=== PATIENT | male | born 1955 | race Caucasian/White ===

== ENCOUNTER 2020-06-19 11:46 | Outpatient (REF) | payer MEDICARE, BC, SELFPAY ==
[2020-06-19 14:52] LABS: ALT 66 U/L (16-63); AST 32 U/L (15-37); Albumin 4.5 g/dL (3.4-5.0); Alkaline Phosphatase 95 U/L (46-116); Anion Gap 9.8 mmol/L (3-11); BUN 28 mg/dL (7-18); Bilirubin, Total 0.9 mg/dL (0.2-1.0); CO2 25.2 mmol/L (21.0-32.0); CREATININE 1.11 mg/dL (0.70-1.30); Calcium 9.2 mg/dL (8.5-10.1); Calculated LDL 85 mg/dL (<100); Chloride 108 mmol/L (98-107); Cholesterol 150 mg/dL (<200); Glucose 93 mg/dL (74-106); HDL Cholesterol 57 mg/dL (40-60); Potassium 4.8 mmol/L (3.5-5.1); Sodium 143 mmol/L (136-145); Total Protein 7.4 g/dL (6.4-8.2); Triglyceride 40 mg/dL (<150)
== END 2020-06-19 12:06 ==
LOC: LBO 11:46
PROVIDERS: PCP Family Medicine; Visit Provider Family Medicine
DX: E78.5 Hyperlipidemia, unspecified (principal)
CPT/HCPCS: 80053; 80061

== ENCOUNTER 2020-10-20 02:20 | Outpatient (CLI) | payer MEDICARE, BC, SELFPAY ==
[2020-10-21 12:51] LABS: COVID-19 RT-PCR UVMMC Result Negative (Negative)
== END 2020-10-20 02:21 | disposition home or self-care (01) ==
LOC: LBO 02:20
PROVIDERS: PCP Family Medicine; Visit Provider Family Medicine
DX: Z20.822 Contact with and (suspected) exposure to COVID-19 (principal)
CPT/HCPCS: U0003; U0005

== ENCOUNTER 2021-06-17 02:33 | Outpatient (CLI) | payer MEDICARE, BC, SELFPAY ==
[2021-06-17 10:15] LABS: BUN 32 mg/dL (7-18); CREATININE 1.1 mg/dL (0.70-1.30); Calcium 9.4 mg/dL (8.5-10.1); Chloride 106 mmol/L (98-107); Glucose 99 mg/dL (74-106); Potassium 4.9 mmol/L (3.5-5.1); Sodium 141 mmol/L (136-145)
== END 2021-06-17 02:34 | disposition home or self-care (01) ==
LOC: LBO 02:33
PROVIDERS: PCP Family Medicine; Visit Provider Family Medicine
DX: I10 Essential (primary) hypertension (principal)
CPT/HCPCS: 36415; 80048

== ENCOUNTER 2021-10-05 08:59 | Outpatient (CLI) | payer MEDICARE, BC, SELFPAY ==
--- NOTE | 2021-10-05 08:45 | RT.EKG_ITS ---
APPROVED REPORT Exam: Resting ECG Reason for Exam: Pre-op Patient Location: O HR:47 bpm ECG Measurements Heart Rate 47 AXIS WI 203 P 2 QRSd 78 QRS 22 QT 429 T 41 QTc 379 Conclusion Sinus bradycardia...rate< 60 Normal Electrocardiogram
== END 2021-10-05 09:00 | disposition home or self-care (01) ==
LOC: DI.KIM 09:00
PROVIDERS: PCP Family Medicine; Visit Provider Family Medicine
DX: R00.1 Bradycardia, unspecified (principal)
CPT/HCPCS: 93010

== ENCOUNTER → 2022-07-07 09:54 | Outpatient (BNVA) | payer MEDICARE, BC, SELFPAY | PROVIDERS: PCP Family Medicine; Referring Provider Family Medicine; Visit Provider Nurse Practitioner Adult Health | DX: G56.03 Carpal tunnel syndrome, bilateral upper limbs (principal); G56.23 Lesion of ulnar nerve, bilateral upper limbs | CPT/HCPCS: 95885; 95911; 99203 ==

== ENCOUNTER 2023-02-27 14:57 | Outpatient (CLI) | payer MEDICARE, BC, SELFPAY ==
[2023-02-27 14:58] LABS: Abs Immature Grans 0.03 10^3/uL (0.0-0.06); Absolute Basophil Count 0.03 10^3/uL (0.0-0.2); Absolute Eosinophil Count 0.22 10^3/uL (0.0-0.7); Absolute Lymphocyte Count 0.82 10^3/uL (1.2-3.4); Absolute Neutrophil Count 5.53 10^3/uL (1.2-6.7); Basophils % 0.4; HCT 34.9 % (40.0-50.0); HGB 12.1 g/dL (13.5-17.5); Immature Grans % 0.4; Lymphocytes % 11.3; MCH 31.8 pg (27.0-33.0); MCHC 34.7 % (32.0-36.0); MCV 92 fL (80-95); MPV 9.3 fL (8.0-11.0); Monocytes % 8.3; Neutrophils % 76.6; Platelet Count 320 10^3/uL (130-400); RDW 11.8 % (11.8-14.1); RDW-SD 39.7 fL; WBC 7.23 10^3/uL (4.4-10.8)
[2023-02-27 16:01] LABS: ALT 110 U/L (16-63); AST 51 U/L (15-37); Albumin 3.3 g/dL (3.4-5.0); Alkaline Phosphatase 190 U/L (46-116); Anion Gap 7.3 mmol/L (3-11); BUN 22 mg/dL (7-18); Bilirubin, Total 0.4 mg/dL (0.2-1.0); CO2 24.7 mmol/L (21.0-32.0); CREATININE 1.3 mg/dL (0.70-1.30); Calcium 8.9 mg/dL (8.5-10.1); Chloride 106 mmol/L (98-107); Glucose 113 mg/dL (74-106); Sodium 138 mmol/L (136-145); TSH (W/Ref FT4) 2.07 uIU/mL (0.36-3.74)
[2023-02-27 23:01] LABS: COVID-19 PCR Negative (Negative); Influenza A PCR Negative (Negative); Influenza B PCR Negative (Negative); RSV PCR Negative (Negative)
[2023-02-27 23:06] LABS: Source NASOPHARYNX
[2023-02-28 10:22] LABS: HIV-1/2 Ag & Ab Screen Negative (Negative)
[2023-02-28 10:36] LABS: Hepatitis C Ab w Rflx HCV PCR Negative (Negative)
[2023-02-28 10:58] LABS: Lyme Ab w Rflx to Lyme Confirm Positive (Negative)
[2023-02-28 13:31] LABS: Lyme IgG Ab Positive (Negative); Lyme IgM Ab Positive (Negative)
[2023-03-01 11:26] LABS: TB Interpretation Negative (Negative); TB1 Ag minus Nil 0.01 IU/ml; TB2 Ag minus Nil 0.02 IU/mL
[2023-03-02 12:17] LABS: Anaplasma phagocytophilum Negative (Negative); B. miyamotoi PCR Negative (Negative); Babesia divergens/MO-1 Negative (Negative); Babesia duncani Negative (Negative); Babesia microti Negative (Negative); Ehrlichia chaffeensis Negative (Negative); Ehrlichia ewingii/canis Negative (Negative); Ehrlichia muris eauclairensis Negative (Negative)
== END 2023-02-27 14:58 | disposition home or self-care (01) ==
LOC: LBO 14:58 → LBN 21:50
PROVIDERS: PCP Family Medicine; Visit Provider Nurse Practitioner
DX: J45.909 Unspecified asthma, uncomplicated (principal); R05.9 Cough, unspecified; R06.09 Other forms of dyspnea; R21 Rash and other nonspecific skin eruption; R61 Generalized hyperhidrosis; I10 Essential (primary) hypertension; R06.02 Shortness of breath; Z11.4 Encounter for screening for human immunodeficiency virus [HIV]; Z20.822 Contact with and (suspected) exposure to COVID-19; Z11.59 Encounter for screening for other viral diseases; Z11.8 Encounter for screening for other infectious and parasitic diseases
CPT/HCPCS: 36415; 80053; 86617; 86803; 87389; 87637; 87798; 84443; 85025; 86480; 86618

== ENCOUNTER → 2023-02-27 15:11 | Outpatient (CLI) | payer MEDICARE, BC, SELFPAY ==
--- NOTE | 2023-02-27 14:20 | DI.RAD_ITS ---
Exam(s) XR CHEST 2V PA LATERAL EXAM: XR CHEST 2V PA LATERAL CLINICAL HISTORY: cough for months, R05.9 TECHNIQUE: 2D digital imaging was performed. COMPARISON: CR ABD FLAT UPRIGHT PA CHEST from 01/27/2011 FINDINGS: HEART: Normal size. Aorta: Not dilated. PULMONARY VASCULATURE: Normal. LUNGS: Clear. PLEURAL SPACE: No pleural effusion or pneumothorax. BONE:Unremarkable for age. IMPRESSION: No acute abnormality. DATA REPOSITORY: RADIATION DOSE DELIVERED:
--- OUTSIDE RECORDS SUMMARY | 2023-02-27 15:12 | XMS_ITS | Continuity of Care Document ---
Author Name Unknown Organization [facility] Address [address] [place] [address] Care Team Providers Care Hydrate Thickener Operator Name Role Phone LANCE RODRIGUEZ DO Primary Care Physician Encounter [facility] NBR [id number] Date(s): 12/01/22 - 12/01/22 [facility] [address] [place], [place] [address] Encounter Diagnosis Cubital tunnel syndrome on right(Discharge Diagnosis) - 12/01/22 Trigger little finger of right hand(Discharge Diagnosis) - 12/01/22 Discharge Disposition: Home or Self Care Attending Physician: CHANDNI Newby Allergies, Adverse Reactions, Alerts No Known Allergies Assessment and Plan Future Appointments Functional Status 12/01/22 Other exposure to Infectious Disease Non e Medications atorvastatin 40 mg oral tablet 40 mg = 1 tab, Oral, Daily, 1 Unknown, 0 Refill(s) Start Date: 08/01/22 Status: Ordered lisinopril 20 mg oral tablet 20 mg = 1 tab, Oral, Daily, 1 Unknown, 0 Refill(s) Start Date: 08/01/22 Status: Ordered triamcinolone 0.1% topical ointment 30 g, 0 Refill(s) Start Date: 10/20/22 Status: Ordered Problem List Condition Confirmation Course Effective Dates Status H ealth Status Informant Biceps tendinitis Confirmed Active Left carpal tunnel syndrome Confirmed Active Cervical spondylosis Confirmed Active Colonic polyp Confirmed Active Degenerative joint disease of shoulder region Confirmed Active Cubital tunnel syndrome on right Confirmed Active Full thickness rotator cuff tear Confirmed Active History of COVID-19 1 Confirmed 04/02/22 Active HLD - Hyperlipidemia Confirmed Active HTN - Hypertension Confirmed Active Impingement syndrome of right shoulder region Confirmed Active Nontraumatic rupture of rotator cuff of left shoulder Confirmed Active SCC - Small cell carcinoma Confirmed Active Tenosynovitis of left wrist Confirmed Active Tinnitus Confirmed Active Trigger little finger of right hand Confirmed Active 1mild sx's Procedures Procedure Date Related Diagnosis Body Site Status Transposition Ulna (Right) 1 10/12/22 Completed Carpal Tunnel Release (Left) 2 09/19/22 Completed Cholecystectomy 3 Complet ed Excision of joint of toe 4 Completed Manipulation of deviated nasal septum Completed Repair of inguinal hernia Completed Simple excision of nasal polyps Completed 1auto-populated from documented surgical case 2auto-populated from documented surgical case [id number] 4removal of bone spurs on right big toe Vital Signs Most recent to oldest [Reference Range]: 1 Weight 80.74 kg (12/01/22 8:03 AM) Weight Measured (lbs) 178.001 lb (12/01/22 8:03 AM) Height 162.56 cm (12/01/22 8:03 AM) Height/Length Measured (inches) 64 inch (12/01/22 8:03 AM) BSA Measured 1.91 m2 (12/01/22 8:03 AM) Body Mass Index 30.55 kg/m2 (12/01/22 8:03 AM) Social History Social History Type Response Tobacco Never tobacco user T obacco Use:. Sex Male Physician Outpatient Note * CHANDNI Newby: PERFORM Event Display: Office Clinic Note Physician Authored Date: [id number] COOKIE MASON :1955 Age:67 years Sex:Male Visit Date:12/01/2022 Primary Care Physician: LANCE RODRIGUEZ DO Chief Complaint RIGHT ELBOW History of Present Illness The patient comes in today status post surgery on 10/12/2022. ??He had a cubital tunnel release withulnar nerve transposition and 1/5 digit trigger finger release.?? The numbness and tingling are gone. ??He is not getting any triggering. ??He still has some scar tissue??around the incision sites. ??He has been careful about lifting. Review of Systems Other than the HPI is unremarkable Physical Exam Vitals & Measurements HT:??162.56??cm?? WT:??80.74??kg?? BMI:??30.55?? BSA:??1.91?? General: Alert and oriented x3, pleasant cooperative, in no acute distress, appears to be their stated age, is generally fit appearing.? Right upper extremity: His incision on his hand and elbow are healing nicely although there is some scar tissue.?? No erythema or skin lesions. ??Sensation to light touch in all of his digits is intact. ??Full range of motion of his digits wrist??and elbow. Assessment/Plan 1.??Cubital tunnel syndrome on right??G56.21 2.??Trigger little finger of right hand??M65.351 Patient is doing well status post the aforementioned procedures.?? I counseled him on not lifting more than??than about 25 to 50 pounds with his right arm only??and that he should try to use assistive devices if needed. ??I also counseled him on massaging his incisions to help with the scar tissue.??He has an appointment in 6 weeks. ??If he is doing well he can call and cancel. Problem List/Past Medical History Ongoing Biceps tendinitis Cervical spondylosis Colonic polyp Cubital tunnel syndrome on right Degenerative joint disease of shoulder region Full thickness rotator cuff tear History of COVID-19 HLD - Hyperlipidemia HTN - Hypertension Impingement syndrome of right shoulder region Left carpal tunnel syndrome Nontraumatic rupture of rotator cuff of left shoulder SCC - Small cell carcinoma Tenosynovitis of left wrist Tinnitus Trigger little finger of right hand Historical No qualifying data Procedure/Surgical History ???Transposition Ulna (Right) (10/12/2022)???Carpal Tunnel Release (Left) (09/19/2022)???Cholecystectomy???Excision of joint of toe???Manipulation of deviated nasal septum???Repair of inguinal hernia???Simple excision of nasal polyps Medications atorvastatin 40 mg oral tablet, 40 mg= 1 tab, Oral, Daily lisinopril 20 mg oral tablet, 20 mg= 1 tab, Oral, Daily triamcinolone 0.1% topical ointment Allergies No Known Allergies No Known Medication Allergies Social History Alcohol Current, Beer- Comments: VERY LITTLE Electronic Cigarette/Vaping Electronic Cigarette Use: Never. Employment/School Retired Substance Use Never Tobacco Never tobacco user Tobacco Use:. Electronically Signed on 12/01/22 08:43 AM CHANDNI Newby Patient Care team information Care Team Personnel Name: LANCE RODRIGUEZ DO Position: No Access Member Role: Primary Care Physician Address: Address: [place] [address]- Care Team Related Persons Name: NOBLE MASON
--- OUTSIDE RECORDS SUMMARY | 2023-02-27 15:12 | XMS_ITS | Continuity of Care Document ---
Author Name Unknown Organization [facility] Address [address] [place] [address] Care Team Providers Care Metal Or Wood Blocker Name Role Phone LANCE RODRIGUEZ Primary Care Physician Encounter [facility] NBR [id number] Date(s): 07/15/22 - 07/15/22 [facility] [address] [place] [address]- [place] Assessment and Plan Future Appointments Social History Social History Type Response Sex Male Patient Care team information Personnel Name: LANCE RODRIGUEZ Address: Address: [address] [address]-
--- OUTSIDE RECORDS SUMMARY | 2023-02-27 15:12 | XMS_ITS | Continuity of Care Document ---
Author Name Unknown Organization [facility] Address [address] [place] [address] Care Team Providers Care Utility Appraiser Name Role Phone LANCE OSEGUERA DO Primary Care Physician Encounter [facility] NBR [id number] Date(s): 08/02/22 - 08/02/22 [facility] [address] [place] [address] [place] Encounter Diagnosis Bilateral carpal tunnel syndrome(Discharge Diagnosis) - 08/02/22 Cubital tunnel syndrome, bilateral(Discharge Diagnosis) - 08/02/22 Discharge Disposition: Home or Self Care Attending Physician: Dylan Brandt MD Allergies, Adverse Reactions, Alerts No Known Allergies Functional Status 08/02/22 Other exposure to Infectious Disease Non e Medications atorvastatin 40 mg oral tablet 1 Unknown, 0 Refill(s) Start Date: 08/01/22 Status: Ordered ibuprofen 400 mg oral tablet TID, 0 Refill(s) Start Date: 08/01/22 Status: Ordered lisinopril 20 mg oral tablet 1 Unknown, 0 Refill(s) Start Date: 08/01/22 Status: Ordered Problem List Condition Confirmation Course Effective Dates Status Health St atus Informant Biceps tendinitis Confirmed Active Cervical spondylosis Confirmed Active Degenerative joint disease of shoulder region Confirmed Active Full thickness rotator cuff tear Confirmed Active Impingement syndrome of right shoulder region Confirmed Active Nontraumatic rupture of rotator cuff of left shoulder Confirmed Active Vital Signs Most recent to oldest [Reference Range]: 1 Peripheral Pulse Rate [60-100 bpm] 72 bp m (08/02/22 1:46 PM) Blood Pressure [90-140/60-90 mmHg] 130/6 0mmHg (08/02/22 1:46 PM) Weight 80.74 kg (08/02/22 1:46 PM) Weight Measured (lbs) 178.001 lb (08/02/22 1:46 PM) Height 162.56 cm (08/02/22 1:46 PM) Height/Length Measured (inches) 64 inch (08/02/22 1:46 PM) BSA Measured 1.91 m2 (08/02/22 1:46 PM) Body Mass Index 30.55 kg/m2 (08/02/22 1:46 PM) Social History Social History Type Response Tobacco Never tobacco user T obacco Use:. Sex Male Hospital Discharge Instructions Follow Up Care 07/11/2022 10:15:00 With:Surgery Address: When: Unknown Physician Outpatient Note * Dylan Brandt MD: PERFORM Event Display: Office Clinic Note Physician Authored Date: [id number] COOKIE MASON :1955 Age:67 years Sex:Male Visit Date:08/02/2022 Primary Care Physician: LANCE OSEGUERA DO Chief Complaint Left wrist right elbow History of Present Illness Please send a copy of this note to Dr. Oseguera. ?? 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 Oseguera??for the evaluation of bilateral hand numbness and tingling. ??The patient states that for the past year he has experienced severe pain in his left thumb??greater than his??index and long digits. ??This has been associated with??numbness and tingling.?? His physician recommended that he try bracing which he found to be helpful, although??in the fall 2021 he??states that his symptoms progressed to the point that the brace was no longer helpful.?? He now has constant pain, numbness, and tingling in the radial 3 digits of the hand. ??This has been waking him at night. ??He has been taking acetaminophen and ibuprofen to address his left hand without relief. ?? The patient states that he has also developed numbness and tingling involving the ulnar 2 digitsof his right hand??to the point that he??has absent sensation about the small digit.?? He has also noticed??weakness of the right hand with atrophy of the??right thenar eminence and first webspace.??Although he has numbness and tingling, it is not painful.?? He therefore believes that his??left wrist is the biggest issue. ??His right upper extremity has not been waking him at night. Physical Exam Vitals & Measurements HR:??72??(Peripheral)?? BP:??130/60?? SpO2:??99%?? HT:??162.56??cm?? WT:??80.74??kg?? BMI:??30.55?? BSA:??1.91?? Right upper extremity demonstrates absent sensation to??light touch about the right??small digit.??He demonstrates atrophy??of??the distal aspect of the thenar eminence as well as the first webspace.?? Range of motion of the elbow lacks 5 degrees of terminal extension and 20 degrees of??flexion loss.?? This??motion loss predated the onset of his current symptoms.?? He demonstrates full range of motion of the wrist and hand.?? Phalen's test, compression test, and Tinel's sign are negative aboutthe right carpal tunnel.?? The right elbow??demonstrates??no evidence of ulnar nerve instability with range of motion.?? Tinel sign is positive??about the cubital tunnel.?? Flexion test is positive and reproduces numbness and tingling after approximately 10 seconds. ?? Left upper extremity demonstrates mild thenar eminence atrophy diffusely.?? He demonstrates full??range of motion of the elbow, wrist, and hand.?? He has mild swelling about the carpal tunnel.?? Phalen's test??and compression test??are positive??and reproduce pain, numbness, and tingling into the radial 3 digits of the hand.?? His cubital tunnel is nontender. ??Tinel sign is negative. ??No evidence of ulnar nerve instability was noted with range of motion of the elbow. Assessment/Plan 1.??Bilateral carpal tunnel syndrome??G56.03 2.??Cubital tunnel syndrome, bilateral??G56.23 The patient??demonstrates??evidence of??right??upper extremity numbness and??tingling??with atrophysecondary to severe right??ulnar neuropathy at the elbow.?? He demonstrates pain, numbness, and tingling??to the left upper extremity secondary to moderate carpal tunnel syndrome??which he believes is the biggest problem.?? The treatment options were discussed with the patient who has been on a course of conservative treatment without relief.?? The patient opted to proceed with surgical management. ??The procedure of left carpal tunnel release??and tenosynovectomy was described in detail to thepatient as well as the associated risks, benefits, alternatives, possible complications, and postoperative course. ??This would be staged by right elbow cubital tunnel release versus possible ulnar nerve transposition??in a staged fashion. ??We will proceed with medical optimization as appropriate.??The patient verbalized understanding and all questions were answered. ?? We went over use of narcotics postoperatively. ??We will use the smallest dose for the shortest period of time for their acute postoperative pain only. ??This will be in addition to icing, Tylenol, physical therapy, and bracing. ??We will obtain consent and do a risk assessment tool. ??We will alsoneed to check the PDMP as needed. ?? I personally reviewed the patient's referral, outside consultation notes, previous radiographic images and results, and relevant tests. ?? Thank you for the courtesy of this referral. Follow Up Instructions With When Contact Information Surgery Additional Instructions: Problem List/Past Medical History Ongoing Biceps tendinitis Cervical spondylosis Degenerative joint disease of shoulder region Full thickness rotator cuff tear Impingement syndrome of right shoulder region Nontraumatic rupture of rotator cuff of left shoulder Historical No qualifying data Medications atorvastatin 40 mg oral tablet ibuprofen 400 mg oral tablet, TID lisinopril 20 mg oral tablet Allergies No Known Allergies No Known Medication Allergies Social History Electronic Cigarette/Vaping Electronic Cigarette Use: Never. Tobacco Never tobacco user Tobacco Use:. Diagnostic Results Diagnostic Study Interpretation: EMG??of bilateral upper extremities performed at [facility] on 07/14/2022??demonstrates severe right??ulnar neuropathy at the elbow, and moderate??carpal tunnel syndrome.?? He also demonstrates mild left ulnar neuropathy at the elbow, and moderate carpal tunnel syndrome. Electronically Signed on 08/02/22 03:15 PM Dylan Brandt MD Patient Care team information Personnel Name: LANCE OSEGUERA DO Address: Address: [facility] [address] [place] [address], [place] [id number]
--- OUTSIDE RECORDS SUMMARY | 2023-02-27 15:12 | XMS_ITS | Continuity of Care Document ---
Author Name Unknown Organization [facility] Address [address] [place] [address] Care Team Providers Care Sheeter Helper Name Role Phone LANCE RODRIGUEZ DO Primary Care Physician Encounter [facility] NBR [id number] Date(s): 10/20/22 - 10/20/22 [facility] [address], [place] [address] Encounter Diagnosis Cubital tunnel syndrome on right(Discharge Diagnosis) - 10/20/22 Trigger little finger of right hand(Discharge Diagnosis) - 10/20/22 Discharge Disposition: Home or Self Care Attending Physician: CHANDNI Newby Allergies, Adverse Reactions, Alerts No Known Allergies Assessment and Plan Future Appointments Functional Status 10/20/22 Other exposure to Infectious Disease Non e Medications atorvastatin 40 mg oral tablet 40 mg = 1 tab, Oral, Daily, 1 Unknown, 0 Refill(s) Start Date: 08/01/22 Status: Ordered cyclobenzaprine 5 mg oral tablet 20 EA, 0 Refill(s) Start Date: 10/20/22 Status: Ordered HYDROcodone-acetaminophen 5 mg-325 mg oral tablet 10 EA, 0 Refill(s) Start Date: 10/20/22 Status: Ordered lisinopril 20 mg oral tablet 20 mg = 1 tab, Oral, Daily, 1 Unknown, 0 Refill(s) Start Date: 08/01/22 Status: Ordered Phenergan 25 mg oral tablet 5 EA, 0 Refill(s) Start Date: 10/20/22 Status: Ordered triamcinolone 0.1% topical ointment 30 [...] surgical case 2auto-populated from documented surgical case [id number] 4removal of bone spurs on right big toe Vital Signs Most recent to oldest [Reference Range]: 1 Peripheral Pulse Rate [60-100 bpm] 70 bp m (10/20/22 8:02 AM) Blood Pressure [90-140/60-90 mmHg] 132/7 0mmHg (10/20/22 8:02 AM) Weight 80.74 kg (10/20/22 8:02 AM) Weight Measured (lbs) 178.001 lb (10/20/22 8:02 AM) Height 162.56 cm (10/20/22 8:02 AM) Height/Length Measured (inches) 64 inch (10/20/22 8:02 AM) BSA Measured 1.91 m2 (10/20/22 8:02 AM) Body Mass Index 30.55 kg/m2 (10/20/22 8:02 AM) Social History Social History Type Response Tobacco Never tobacco user T obacco Use:. Sex Male Physician Outpatient Note * CHANDNI Newby: PERFORM Event Display: Office Clinic Note Physician Authored Date: [id number] COOKIE MASON :1955 Age:67 years Sex:Male Visit Date:10/20/2022 Primary Care Physician: LANCE RODRIGUEZ DO Chief Complaint RIGHT ELBOW 1ST POV History of Present Illness The patient comes in today status post surgery on 10/12/2022. ??He had a right cubital tunnel and ulnar nerve transposition, and right fifth digit flexor tendon mass excision and tenosynovectomy.?? The numbness in his fifth digit is??dissipating.?? He denies any??other numbness or tingling. ??He denies any fevers or chills. ??He has not needed any pain medicine for this.?? He has been wearing his splint and using his sling.?? He is a little bit stiff with his elbow but otherwise is doing well. Review of Systems Unremarkable Physical Exam Vitals & Measurements HR:??70??(Peripheral)?? BP:??132/70?? SpO2:??99%?? HT:??162.56??cm?? WT:??80.74??kg?? BMI:??30.55?? BSA:??1.91?? General: Alert and oriented x3, pleasant cooperative, in no acute distress, appears to be their stated age, is generally fit appearing.? Right elbow:??His incisions are well approximated at the elbow clean and dry with no signs of infection.?? He has full extension although his baseline is lacking about 2 or 3 degrees. ??He has full flexion. ?? Right hand: His??incision at the fifth??metacarpal volarly is scabbing mildly but healing nicelyon the inside. ??No signs of??bleeding discharge or infection.?? He has full range of motion. ??Sensation to light touch at the fifth digit is intact.?? Skin distally is pink warm and dry. Assessment/Plan 1.??Cubital tunnel syndrome on right??G56.21 2.??Trigger little finger of right hand??M65.351 The patient is doing well status post the aforementioned procedure. ??I did??apply some Dermabond to his??hand incision. ??He will increase his range of motion??of his elbow as tolerated. ??I like him to avoid heavy lifting for another 5 weeks. ??We will see him back in 6 weeks. Problem List/Past Medical History Ongoing Biceps tendinitis [...] tablet, 40 mg= 1 tab, Oral, Daily cyclobenzaprine 5 mg oral tablet HYDROcodone-acetaminophen 5 mg-325 mg oral tablet lisinopril 20 mg oral tablet, 20 mg= 1 tab, Oral, Daily Phenergan 25 mg oral tablet triamcinolone 0.1% topical ointment Allergies No Known Allergies No Known Medication Allergies Social History Alcohol Current, Beer- Comments: VERY LITTLE Electronic Cigarette/Vaping Electronic Cigarette Use: Never. Employment/School Retired Substance Use Never Tobacco Never tobacco user Tobacco Use:. Electronically Signed on 10/20/22 08:41 AM CHANDNI Newby Electronically Signed on 10/20/22 08:44 AM Dylan Brandt MD Patient Care team information Care Team Personnel Name: LANCE RODRIGUEZ DO Position: No Access Member Role: Primary Care Physician Address: Address: [address] [address]- Care Team Related Persons Name: NOBLE MASON
--- OUTSIDE RECORDS SUMMARY | 2023-02-27 15:13 | XMS_ITS | Continuity of Care Document ---
Author Name Unknown Organization [facility] Address [address] [place] [address] Care Team Providers Care Cast Associate Name Role Phone LANCE RODRIGUEZ DO Primary Care Physician Encounter [facility] NBR [id number] Date(s): 09/27/22 - 09/27/22 [facility] [address] [place] [address] [place] Encounter Diagnosis Left carpal tunnel syndrome(Discharge Diagnosis) - 09/27/22 Tenosynovitis of left wrist(Discharge Diagnosis) - 09/27/22 Trigger little finger of right hand(Discharge Diagnosis) - 09/27/22 Cubital tunnel syndrome, bilateral(Discharge Diagnosis) - 09/27/22 Discharge Disposition: Home or Self Care Attending Physician: CHANDNI Newby Allergies, Adverse Reactions, Alerts No Known Allergies Assessment and Plan Future Appointments Functional Status 09/27/22 Other exposure to Infectious Disease Non e [...] syndrome Confirmed Active Cervical spondylosis Confirmed Active Degenerative joint disease of shoulder region Confirmed Active Full thickness rotator cuff tear Confirmed Active History of COVID-19 1 Confirmed 04/02/22 Active Impingement syndrome of right shoulder region Confirmed Active Nontraumatic rupture of rotator cuff of left shoulder Confirmed Active Tenosynovitis of left wrist Confirmed Active Trigger little finger of right hand Confirmed Active 1mild sx's Procedures Procedure Date Related Diagnosis Body Site Status Carpal Tunnel Release (Left) 1 09/19/22 Completed Cholecystectomy 2 Complet ed Excision of joint of toe 3 Completed Manipulation of deviated nasal septum Completed Repair of inguinal hernia Completed Simple excision of nasal polyps Completed 1auto-populated from documented surgical case [id number] 3removal of bone spurs on right big toe Vital Signs Most recent to oldest [Reference Range]: 1 Peripheral Pulse Rate [60-100 bpm] 52 bp m *LOW* (09/27/22 8:14 AM) Blood Pressure [90-140/60-90 mmHg] 128/7 0mmHg (09/27/22 8:14 AM) Weight 80.74 kg (09/27/22 8:14 AM) Weight Measured (lbs) 178.001 lb (09/27/22 8:14 AM) Height 162.56 cm (09/27/22 8:14 AM) Height/Length Measured (inches) 64 inch (09/27/22 8:14 AM) BSA Measured 1.91 m2 (09/27/22 8:14 AM) Body Mass Index 30.55 kg/m2 (09/27/22 8:14 AM) Social History Social History Type Response Tobacco Never tobacco user T obacco Use:. Sex Male Physician Outpatient Note * CHANDNI Newby: PERFORM Event Display: Office Clinic Note Physician Authored Date: [id number] COOKIE MASON :1955 Age:67 years Sex:Male Visit Date:09/27/2022 Primary Care Physician: LANCE RODRIGUEZ DO Chief Complaint Left hand and right upper extremity History of Present Illness The patient comes in today status post left open carpal tunnel release on 09/19/2022. ??The numbnessand tingling in his hand prior to surgery is completely gone.?? He has been careful with this. ??Hehas been trying to move his digits. ??He has been taking his aspirin.?? The patient denies any fevers, chills, chest pain, shortness of breath, numbness or tingling.? He also comes in today with right cubital tunnel syndrome and a??flexor tendon mass of the fifthdigit of his right hand??causing??catching sensations and pain.?? He is set up for a??right cubitaltunnel release with??1/5 digit flexor tendon mass excision and tenosynovectomy??in the near future.?? Continues to get numbness and tingling in his fourth and fifth digits. ??He does have??catching sensations??of his fifth digit??and at times he has to pull his finger straight. ??This has become very painful for him. Review of Systems Other than the HPI is unremarkable Physical Exam Vitals & Measurements HR:??52??(Peripheral)?? BP:??128/70?? SpO2:??98%?? HT:??162.56??cm?? WT:??80.74??kg?? BMI:??30.55?? BSA:??1.91?? General: Alert and oriented x3, pleasant cooperative, in no acute distress, appears to be their stated age, is generally fit appearing.? Left hand: Well approximated incision although mild gapping is at the proximal aspect.?? No bleeding or discharge or erythema is present. ??Range of motion of all of his digits is intact. ??Sensationto light touch in all of his digits is intact.?? Skin distally is pink warm and dry. ?? Right upper extremity:??Loss of??sensation to??light touch about the right??small digit.?? He demonstrates atrophy??of??the distal aspect of the thenar eminence as well as the first webspace.?? Range of motion of the elbow lacks 5 degrees of terminal extension and 20 degrees of??flexion loss.?? T his??motion loss predated the onset of his current symptoms.?? He demonstrates full range of motionof the wrist and hand.?? Phalen's test, compression test, and Tinel's sign are negative about the right carpal tunnel.?? The right elbow??demonstrates??no evidence of ulnar nerve instability with range of motion.?? Tinel sign is positive??about the cubital tunnel.?? Flexion test is positive and reproduces numbness and tingling after approximately 10 seconds.?? There is a palpable nodule at the base of the right fifth digit. ??There is??triggering present at the office.?? It is painful over the A1 genet to palpation. Assessment/Plan 1.??Left carpal tunnel syndrome??G56.02 2.??Tenosynovitis of left wrist??M65.9 3.??Trigger little finger of right hand??M65.351 4.??Cubital tunnel syndrome, bilateral??G56.23 The patient comes in today status post the aforementioned procedure on his left hand. ??I like him to avoid grabbing objects until his incision has healed over completely. ??I did remove the stitch and placed a bandage over his incision. ??He can take a shower but no immersion for another 3 weeks.?? Once his incision is healed completely he can start to??immersed this and use it as tolerated. ?? He also comes in today with right cubital tunnel syndrome and right fifth digit flexor tendon mass with tenosynovitis. ??He has elected for surgery which would include a right cubital tunnel release??versus ulnar nerve transposition, left fifth digit flexor tendon mass excision and tenosynovectomy.?? The benefits, risk, complications, and postoperative course were described the patient at length. ??He is in agreement and wishes to proceed.?? He will not need a prescription of pain medicine as he did not need it for his left hand and still has some left. Problem List/Past Medical History Ongoing Biceps tendinitis Cervical spondylosis Degenerative joint disease of shoulder region Full thickness rotator cuff tear History of COVID-19 Impingement syndrome of right shoulder region Left carpal tunnel syndrome Nontraumatic rupture of rotator cuff of left shoulder Tenosynovitis of left wrist Trigger little finger of right hand Historical No qualifying data Procedure/Surgical History ???Carpal Tunnel Release (Left) (09/19/2022)???Cholecystectomy???Excision of joint of toe???Manipulation of deviated nasal septum???Repair of inguinal hernia???Simple excision of nasal polyps Medications atorvastatin 40 mg oral tablet, 40 mg= 1 tab, Oral, Daily lisinopril 20 mg oral tablet, 20 mg= 1 tab, Oral, Daily Allergies No Known Allergies No Known Medication Allergies Social History Alcohol Current, Beer- Comments: VERY LITTLE Electronic Cigarette/Vaping Electronic Cigarette Use: Never. Employment/School Retired Substance Use Never Tobacco Never tobacco user Tobacco Use:. Diagnostic Results Diagnostic Study Interpretation: EMG??of bilateral upper extremities performed at [facility] on 07/14/2022??demonstrates severe right??ulnar neuropathy at the elbow, and moderate??carpal tunnel syndrome.?? He also demonstrates mild left ulnar neuropathy at the elbow, and moderate carpal tunnel syndrome. Electronically Signed on 09/27/22 08:44 AM CHANDNI Newby Electronically Signed on 09/27/22 01:18 PM Dylan Brandt MD Patient Care team information Care Team Personnel Name: LANCE RODRIGUEZ DO Position: No Access Member Role: Primary Care Physician Address: Address: [facility] [address] [place] [address]- Care Team Related Persons Name: NOBLE CARRASQUILLO
--- OUTSIDE RECORDS SUMMARY | 2023-02-27 15:13 | XMS_ITS | Continuity of Care Document ---
Author Name Unknown Organization [facility] Address [address] [place] [id number] Care Team Providers Care Transformer Molder Name Role Phone LANCE RODRIGUEZ DO Primary Care Physician Encounter [facility] NBR [id number] Date(s): 08/02/22 - 08/02/[address] [address]- [place] Discharge Disposition: Home or Self Care Attending Physician: Dylan Brandt MD Admitting Physician: Dylan Brandt MD Allergies, Adverse Reactions, Alerts No Known Allergies Medications atorvastatin 40 mg oral tablet 1 [...] rotator cuff of left shoulder Confirmed Active Social History Social History Type Response Tobacco Never tobacco user T obacco Use:. Sex Male Patient Care team information Personnel Name: LANCE RODRIGUEZ DO Address: Address: [address] [address]-
--- OUTSIDE RECORDS SUMMARY | 2023-02-27 15:13 | XMS_ITS | Continuity of Care Document ---
Author Name Unknown Organization [facility] Address [address] [place] [id number] Care Team Providers Care Animal Care Supervisor Name Role Phone LANCE RODRGIUEZ DO Primary Care Physician Encounter [facility] NBR [id number] Date(s): 09/19/22 - 09/19/[address] [address]- Encounter Diagnosis Left carpal tunnel syndrome(Discharge Diagnosis) - 09/18/22 Tenosynovitis of left wrist(Discharge Diagnosis) - 09/18/22 Discharge Disposition: Home or Self Care Attending Physician: Dylan Brandt MD Admitting Physician: Dylan Brandt MD Referring Physician: Dylan Brandt MD Allergies, Adverse Reactions, Alerts No Known Allergies Assessment and Plan Future Appointments Functional Status 09/19/22 ADLs Independent Antiembolism Device Graduated compressio n stockings, knee high, bilateral Other exposure to Infectious Disease Non e Medications atorvastatin 40 mg oral tablet 40 mg = 1 tab, Oral, Daily, 1 Unknown, 0 Refill(s) Start Date: 08/01/22 Status: Ordered lisinopril 20 mg oral tablet 20 mg = 1 tab, Oral, Daily, 1 Unknown, 0 Refill(s) Start Date: 08/01/22 Status: Ordered Problem List Condition Confirmation Course Effective Dates Status H ealt Status Informant Biceps tendinitis Confirmed Active Left [...] polyps Completed 1auto-populated from documented surgical case [id number] 3removal of bone spurs on right big toe Vital Signs Most recent to oldest [Reference Range]: 1 2 3 Temperature Temporal Artery [36-38 Deg C] 36.5 Deg C (09/19/22 10:45 AM) 36.5 Deg C (09/19/22 10:13 AM) 37.2 Deg C (09/19/22 8:46 AM) Temperature Temporal Artery (DegF) [97.3-100 Deg F] 97.7 Deg F (09/19/22 10:45 AM) 97.7 Deg F (09/19/22 10:13 AM) Peripheral Pulse Rate [60-100 bpm] 44 bpm *LOW* (09/19/22 10:45 AM) 50 bpm *LOW* (09/19/22 10:30 AM) 47 bpm *LOW* (09/19/22 10:23 AM) Respiratory Rate [12-24 br/min] 16 br/min (09/19/22 8:46 AM) Blood Pressure [90-140/60-90 mmHg] 129/78mmHg (09/19/22 10:45 AM) 120/71mmHg (09/19/22 10:30 AM) 128/71mmHg (09/19/22 10:18 AM) Mean Arterial Pressure, Cuff [65-140 mmHg] 95 mmHg (09/19/22 10:45 AM) 90 mmHg (09/19/22 10:18 AM) 90 mmHg (09/19/22 10:13 AM) Mean Arterial Pressure Cuff 94 mmHg (09/19/22 10:45 AM) 88 mmHg (09/19/22 10:13 AM) Weight 80.740 kg (09/13/22 9:56 AM) Weight Dosing 80.740 kg (09/13/22 9:56 AM) Height 162.560 cm (09/13/22 9:56 AM) Height/Length Dosing 162.560 cm (09/13/22 9:56 AM) Social History Social History Type Response Tobacco Never tobacco user T obacco Use:. Sex Male Discharge instructions * Event Display: Discharge Instructions History and physical note * Event Display: History and Physical Update Patient Care team information Care Team Personnel Name: LANCE RODRIGUEZ DO Position: No Access Member Role: Primary Care Physician Address: Address: [id number] [place] [address] Care Team Related Persons Name: NOBLE CARRASQUILLO
--- OUTSIDE RECORDS SUMMARY | 2023-02-27 15:13 | XMS_ITS | Continuity of Care Document ---
Author Name Unknown Organization [facility] Address [address] [place] [address] Care Team Providers Care Wool Mixer Name Role Phone LANCE RODRIGUEZ DO Primary Care Physician Encounter [facility] NBR [id number] Date(s): 09/06/22 - 09/06/22 [facility] [address] [place] [address] [place] Encounter Diagnosis Cubital tunnel syndrome, bilateral(Discharge Diagnosis) - 09/06/22 Left carpal tunnel syndrome(Discharge Diagnosis) - 09/06/22 Tenosynovitis of left wrist(Discharge Diagnosis) - 09/06/22 Trigger little finger of right hand(Discharge Diagnosis) - 09/06/22 Discharge Disposition: Home or Self Care Attending Physician: CHANDNI Newby Allergies, Adverse Reactions, Alerts No Known Allergies Assessment and Plan Future Appointments Functional Status 09/06/22 Other exposure to Infectious Disease Non e [...] little finger of right hand Confirmed Active Vital Signs Most recent to oldest [Reference Range]: 1 Peripheral Pulse Rate [60-100 bpm] 49 bp m *LOW* (09/06/22 10:48 AM) Blood Pressure [90-140/60-90 mmHg] 140/8 0mmHg (09/06/22 10:48 AM) Weight 80.74 kg (09/06/22 10:48 AM) Weight Measured (lbs) 178.001 lb (09/06/22 10:48 AM) Height 162.56 cm (09/06/22 10:48 AM) Height/Length Measured (inches) 64 inch (09/06/22 10:48 AM) BSA Measured 1.91 m2 (09/06/22 10:48 AM) Body Mass Index 30.55 kg/m2 (09/06/22 10:48 AM) Social History Social History Type Response Tobacco Never tobacco user T obacco Use:. Sex Male Physician Outpatient Note * CHANDNI Newby: PERFORM Event Display: Office Clinic Note Physician Authored Date: [id number] COOKIE MASON :1955 Age:67 years Sex:Male Visit Date:09/06/2022 Primary Care Physician: LANCE RODRIGUEZ DO Chief Complaint LEFT HAND CTS SX 09/19, Right cubital tunnel and fifth digit History of Present Illness Patient comes in today with left carpal tunnel syndrome, right cubital tunnel syndrome, and right fifth digit??pain??with triggering.?? He has been on a course of nonoperative management. ??His left hand numbness and tingling does??decrease his dexterity. ??It does bother him at night. ??He has been diagnosed with left carpal tunnel syndrome and tenosynovitis.?? On the right he is getting numbness and tingling in his fourth and fifth digits.?? Since seeing Dr. Brandt he has started??to get pain at the base of his right fifth digit and this is starting to trigger. ??He does have to force it backinto extension. ??This has become progressively painful for him. Review of Systems Review of systems is significant for bilateral hand numbness and tingling??in the right fifth digit??pain. Physical Exam Vitals & Measurements HR:??49??(Peripheral)?? BP:??140/80?? SpO2:??96%?? HT:??162.56??cm?? WT:??80.74??kg?? BMI:??30.55?? BSA:??1.91?? General: Alert and oriented x3, pleasant cooperative, in no acute distress, appears to be their stated age, is generally fit appearing.? Right upper extremity:??Loss to??sensation to light touch??about the right??small digit.?? He demonstrates atrophy??of??the distal [...] numbness and tingling after approximately 10 seconds.?? He has palpable triggering about thebase of the fifth digit??volarly. ??This is mildly tender to palpation. ??He actively triggers in the office today. ?? Left hand:??Left upper extremity demonstrates mild thenar eminence atrophy diffusely.?? He demonstrates full??range of motion of the elbow, wrist, and hand.?? He has mild swelling about the carpaltunnel.?? Phalen's test??and compression test??are positive??and reproduce pain, numbness, and tingling into the radial 3 digits of the hand.?? His cubital tunnel is nontender. ??Tinel sign is negative. ??No evidence of ulnar nerve instability was noted with range of motion of the elbow. Assessment/Plan 1.??Cubital tunnel syndrome, bilateral??G56.23 2.??Left carpal tunnel syndrome??G56.02 3.??Tenosynovitis of left wrist??M65.9 4.??Trigger little finger of right hand??M65.351 The patient comes in today with left carpal tunnel syndrome and tenosynovitis??and??right??cubital tunnel syndrome with??a flexor tendon mass and tenosynovitis of the right??fifth??digit.?? This is??negatively affecting his dexterity.?? He has been on a course of nonoperative management and has elec leslie for surgery. ??This will include a left open carpal tunnel release with tenosynovectomy. ??Thiswill be staged??with a right cubital tunnel release and right??fifth digit flexor tendon mass excision and tenosynovectomy.?? The benefits, risk, complications, and postoperative course were described to the patient at length.?He has elected for the surgeries and wishes to proceed.?? He would like to try to not have any narcotics??postoperatively. ??He would like to continue with Tylenol ice and elevation as needed.?? If he does need any narcotics he will call us and let us know in the postoperative period. ?? We went over use of narcotics postoperatively. ??We will use the smallest dose for the shortest period of time for their acute postoperative pain only. ??This will be in addition to icing, Tylenol, physical therapy, and bracing. ??We will obtain consent and do a risk assessment tool. ??We will also need to check the PDMP as needed. Problem List/Past Medical History Ongoing Biceps tendinitis Cervical spondylosis Degenerative joint disease of shoulder region Full thickness rotator cuff tear Impingement syndrome of right shoulder region Left carpal tunnel syndrome Nontraumatic rupture of rotator cuff of left shoulder Tenosynovitis of left wrist Trigger little finger of right hand Historical No qualifying data Medications atorvastatin 40 mg oral tablet ibuprofen 400 mg oral tablet, TID lisinopril 20 mg oral tablet Allergies No Known Allergies No Known Medication Allergies Social History Alcohol Current, Beer- Comments: VERY LITTLE Electronic Cigarette/Vaping Electronic Cigarette Use: Never. Employment/School Retired Tobacco Never tobacco user Tobacco Use:. Diagnostic Results Diagnostic Study Interpretation: EMG??of bilateral upper extremities performed at [facility] on 07/14/2022??demonstrates severe right??ulnar neuropathy at the elbow, and moderate??carpal tunnel syndrome.?? He also demonstrates mild left ulnar neuropathy at the elbow, and moderate carpal tunnel syndrome. Electronically Signed on 09/06/22 12:09 PM CHANDNI Newby Patient Care team information Care Team Personnel Name: LANCE RODRIGUEZ DO Position: No Access Member Role: Primary Care Physician Address: Address: [address] [address]- [place]
--- OUTSIDE RECORDS SUMMARY | 2023-02-27 15:13 | XMS_ITS | Continuity of Care Document ---
Author Name Unknown Organization [facility] Address [address] [place] [address] Care Team Providers Care Rug Hooker Name Role Phone LANCE RODRIGUEZ DO Primary Care Physician Encounter [facility] NBR [id number] Date(s): 01/17/23 - 01/17/23 [facility] [address], [place] [address] Encounter Diagnosis Trigger little finger of right hand(Discharge Diagnosis) - 01/17/23 Cubital tunnel syndrome on right(Discharge Diagnosis) - 01/17/23 Discharge Disposition: Home or Self Care Attending Physician: Dylan Brandt MD Referring Physician: LANCE RODRIGUEZ DO Allergies, Adverse Reactions, Alerts No Known Allergies Functional Status 01/17/23 Other exposure to Infectious Disease Non e [...] surgical case 2auto-populated from documented surgical case [id number] 4removal of bone spurs on right big toe Vital Signs Most recent to oldest [Reference Range]: 1 Peripheral Pulse Rate [60-100 bpm] 75 bp m (01/17/23 7:51 AM) Blood Pressure [90-140/60-90 mmHg] 128/7 0mmHg (01/17/23 7:51 AM) Weight 80.74 kg (01/17/23 7:51 AM) Weight Measured (lbs) 178.001 lb (01/17/23 7:51 AM) Height 162.56 cm (01/17/23 7:51 AM) Height/Length Measured (inches) 64 inch (01/17/23 7:51 AM) BSA Measured 1.91 m2 (01/17/23 7:51 AM) Body Mass Index 30.55 kg/m2 (01/17/23 7:51 AM) Social History Social History Type Response Tobacco Never tobacco user T obacco Use:. Sex Male Hospital Discharge Instructions Follow Up Care 11/21/2022 15:09:35 With:Patient to call as needed Address: When: Unknown Physician Outpatient Note * Dylan Brandt MD: PERFORM Event Display: Office Clinic Note Physician Authored Date: [id number] COOKIE MASON :1955 Age:67 years Sex:Male Visit Date:01/17/2023 Primary Care Physician: LANCE RODRIGUEZ DO Chief Complaint RIGHT ELBOW 3 POV History of Present Illness The patient presents for follow-up of his right upper extremity status post ulnar nerve transposition and fifth??digit trigger release on 10/12/2022.?? The patient states that he is doing well. ??The numbness and tingling extending to his hand has resolved??although he has??mild??numbness about the??volar ulnar aspect of his forearm??that he notices mostly with using a mouse. ??He also has an intermittent pulling sensation about his right elbow in the vicinity of his wound with range of motion. ??However, he states that the numbness and??pulling sensation??are??improving with time.?? He??has not experienced recurrent triggering. ??He states that he is using his right upper extremity in normal fashion??and has been renovating his house.?? He denies night pain. ??He has not needed to take any anti-inflammatories to??address his right upper extremity.?? He does have??mild atrophy of his first webspace and questions whether this will??return. Physical Exam Vitals & Measurements HR:??75??(Peripheral)?? BP:??128/70?? SpO2:??99%?? HT:??162.56??cm?? WT:??80.74??kg?? BMI:??30.55?? BSA:??1.91?? The patient's??right??upper??extremity is neurovascularly intact. ??Sensation and motor exam are intact distally. ??All digits are warm and pink.?? His hand wound has healed well with no evidence of recurrent triggering. ??He demonstrates full??range of motion of his hand and wrist.?? He demonstrates some scarring about his volar??incision??over the fifth??A1 genet, although this is nontender. ??He states that this is softening with time.?? He demonstrates mild atrophy of the first webspace. ?? The patient demonstrates a loss of??5 degrees of terminal flexion??of his elbow.?? Extension, supination, pronation are full and painless. ??His wound is well-healed. ??He has palpable scar tissue??about the wound. Assessment/Plan 1.??Trigger little finger of right hand??M65.351 2.??Cubital tunnel syndrome on right??G56.21 The patient appears to be doing very well status post the above procedure.?? I counseled the patient that he does have some scarring??about his elbow wound and this is likely accounting for the intermittent pulling sensation that he is feeling with range of motion of his elbow.?? I explained that with??time??and use of his??elbow??and hand, the scarring??should improve, particularly as he feels as if the scar tissue is softening.?? I did licensed professional counselor the patient that??deep massage with vitamin E oil may be helpful in breaking up??the scar tissue, although as this is improving??with time alone may??allow for resolution of this.?? I did indicate that it is unclear whether or not his atrophy will improve, although with continued use of his right upper extremity??he should be able to get his strength back.?? Ultimately, the patient was counseled that it may take over a year??for nerve healing to occur.?? The patient verbalized understanding and all questions were answered. ??He may continue with activities to the right upper extremity ad gin. ??He will contact us with any questions or concerns, otherwise we will see him on a as needed basis. Follow Up Instructions With When Contact Information Patient to call as needed Additional Instructions: Problem List/Past Medical History Ongoing [...] tobacco user Tobacco Use:. Electronically Signed on 01/17/23 08:10 AM Dylan Brandt MD Patient Care team information Care Team Personnel Name: LANCE RODRIGUEZ DO Position: No Access Member Role: Primary Care Physician Address: Address: [address] Care Team Related Persons Name: NOBLE MASON
--- OUTSIDE RECORDS SUMMARY | 2023-02-27 15:13 | XMS_ITS | Continuity of Care Document ---
Author Name Unknown Organization [facility] Address [address] [place] [id number] Care Team Providers Care Material Expediter Name Role Phone LANCE RODRIGUEZ DO Primary Care Physician Encounter [facility] NBR [id number] Date(s): 10/12/22 - 10/12/[address] [address]- Encounter Diagnosis Trigger little finger of right hand(Discharge Diagnosis) - 10/05/22 Cubital tunnel syndrome, bilateral(Discharge Diagnosis) - 10/05/22 Discharge Disposition: Home f/u Internal Provider Attending Physician: Dylan Brandt MD Admitting Physician: Dylan Brandt MD Referring Physician: Dylan Brandt MD Allergies, Adverse Reactions, Alerts No Known Allergies Assessment and Plan Future Appointments Functional Status 10/12/22 Anti-Embolism Device Activity: Applied Anti-Embolism Site Condition: No complic ations 10/12/22 Family Member Travel History No recent t ravel Recent Travel History No recent travel Other exposure to Infectious Disease Non e [...] surgical case 2auto-populated from documented surgical case [id number] 4removal of bone spurs on right big toe Vital Signs Most recent to oldest [Reference Range]: 1 2 3 Temperature Temporal Artery [36-38 Deg C] 36.0 Deg C (10/12/22 10:13 AM) 36.0 Deg C (10/12/22 8:07 AM) Temperature Temporal Artery (DegF) [97.3-100 Deg F] 96.8 Deg F *LOW* (10/12/22 10:13 AM) 96.8 Deg F *LOW* (10/12/22 8:07 AM) Peripheral Pulse Rate [60-100 bpm] 50 bpm *LOW* (10/12/22 10:45 AM) 49 bpm *LOW* (10/12/22 10:30 AM) 49 bpm *LOW* (10/12/22 10:15 AM) Blood Pressure [90-140/60-90 mmHg] 138/73mmHg (10/12/22 10:45 AM) 124/76mmHg (10/12/22 10:30 AM) 146/77mmHg *HI* (10/12/22 10:15 AM) Mean Arterial Pressure, Cuff [65-140 mmHg] 95 mmHg (10/12/22 10:45 AM) 92 mmHg (10/12/22 10:30 AM) 100 mmHg (10/12/22 10:15 AM) Mean Arterial Pressure Cuff 94 mmHg (10/12/22 10:45 AM) 94 mmHg (10/12/22 10:15 AM) 87 mmHg (10/12/22 10:13 AM) Weight 81.000 kg (10/06/22 2:31 PM) Weight Dosing 81.000 kg (4/6/23 2:31 PM) Height 163.000 cm (10/06/22 2:31 PM) Height/Length Dosing 163.000 cm (10/06/22 2:31 PM) Social History Social History Type Response Tobacco Never tobacco user T obacco Use:. Sex Male Patient Care team information Care Team Personnel Name: LANCE RODRIGUEZ DO Position: No Access Member Role: Primary Care Physician Address: Address: [address] Care Team Related Persons Name: NOBLE MASON
== END ==
PROVIDERS: PCP Family Medicine; Visit Provider Nurse Practitioner
DX: R05.9 Cough, unspecified (principal)
CPT/HCPCS: 71046

== ENCOUNTER 2024-03-25 03:30 | Outpatient (CLI) | payer MEDICARE, BC, SELFPAY ==
[2024-03-25 07:26] LABS: Anion Gap 8.2 mmol/L (3-11); BUN 35 mg/dL (7-18); CO2 24.8 mmol/L (21.0-32.0); CREATININE 1.4 mg/dL (0.70-1.30); Calcium 9.1 mg/dL (8.5-10.1); Chloride 108 mmol/L (98-107); Estimated GFR 53.74 (mL/min/1.73m2); Glucose 108 mg/dL (74-106); Potassium 4.4 mmol/L (3.5-5.1); Sodium 141 mmol/L (136-145)
== END 2024-03-25 03:31 | disposition home or self-care (01) ==
PROVIDERS: PCP Family Medicine; Visit Provider Family Medicine
DX: I10 Essential (primary) hypertension (principal); Z80.42 Family history of malignant neoplasm of prostate
CPT/HCPCS: 36415; 80048; 84153

== ENCOUNTER → 2024-07-04 07:43 | Outpatient (BNVA) | payer MEDICARE, BC, SELFPAY | PROVIDERS: PCP Family Medicine; Referring Provider Family Medicine; Visit Provider Physical Therapy Assistant | DX: Z12.11 Encounter for screening for malignant neoplasm of colon (principal) ==

== ENCOUNTER 2024-07-12 06:45 | Day surgery (SDC) | payer MEDICARE, BC, SELFPAY ==
--- NOTE | 2024-07-11 15:16 | W.PM.DSUDISC ---
Date of service: 07/12/24 Discharge Plan Disposition Patient Disposition: Home Condition: Good Discharge Details Reason For Visit: screening colonoscopy Attending Provider: Dioni Neville Primary Care Provider: Ryan Oseguera Home Meds and New Rx's Prescriptions: Continued atorvastatin 40 mg tablet 40 mg PO QHS Qty: 90 0RF lisinopril 20 mg tablet 20 mg PO DAILY Qty: 90 0RF Discontinued bisacodyl [Dulcolax (bisacodyl)] 5 mg tablet,delayed release (DR/EC) 5 mg PO ONCE Qty: 4 0RF Rx Instructions: Take per colonoscopy instructions provided by ordering providers office polyethylene glycol 3350 17 gram/dose powder 17 g PO ONCE Qty: 238 0RF Rx Instructions: Take per colonoscopy instructions provided by ordering providers office Discharge Instructions Instructions: Colon polyps, Diverticulosis Additional Instructions: Ran, is very nice meeting you today, and I hope you are comfortable throughout the colonoscopy. Everything went very smoothly. I did find and remove 3 polyps today. 1 of these was medium in size, and the other 2 are small. None of them have any features that are particularly worrisome to the naked eye. As we discussed before hand, however, these will be sent off for testing since the nature of the polyp is what helps guide the timing of future colonoscopies. Incidentally, he also have some diverticulosis. These are weak spots in the muscular part of the colon wall that typically cause little pockets or pouches to form. Those pockets are called diverticula and the condition of having them is called diverticulosis. If they cause symptoms, which is typically experienced as sharp left-sided abdominal pain, then we refer to them as diverticulitis. I hope you are is never bother you. Have attached some basic information here about colon rectal polyps as well as diverticulosis. 1. If tolerated, consume a soft, low fiber diet for 1-2 days. 2. Do not drive, drink alcohol, operate machinery, make critical decisions, or do activities that require coordination or balance for 24 hours. 3. Because air was put into your colon during the procedure, expelling air from your rectum (passing gas or farting) is normal. 4. You may not have a bowel movement for 1-3 days because of the colonoscopy prep. This is normal. 5. Go directly to the emergency room if you notice any of the following: Develop chills (warm to touch), or if you have a thermometer and your temperature is above 101 Difficulty breathing or difficultly swallowing Persistent vomiting Severe abdominal pain, other than gas cramps Severe chest pain Black, tarry stools Any bleeding ? exceeding one tablespoon 6. Call your physician if the site where your intravenous was started becomes red, swollen, painful, and warm to touch. 7. Your physician has reviewed your pre-procedure medications. Please continue to take those medications as previously ordered. You will be given specific information/education regarding any changes to your medications before leaving. Activity:: Activity as Tolerated Diet:: As Tolerated Discharge Orders Discharge Orders: Discharge Order (Routine); Ordered 07/11/24 Ordered By: Dioni Neville DS: Diagnosis Discharge Diagnosis (1) Encounter for screening colonoscopy: Status: Acute Asessment and Plan: Follow-up on polypectomy results
--- NOTE | 2024-07-11 15:17 | COLE_ITS ---
Date of service: 07/12/24 Time of Service: 09:02 Colonoscopy Report Date of procedure: 07/12/24 Pre-op diagnosis general: screening colonoscopy Post-op diagnosis procedure note: other (Diverticulosis, colon polyps) Procedure: colonoscopy with polypectomy Surgeon: Dioni Neville Anesthesia Type: General:No Airway Estimated blood loss (mL): 5 Pathology: other (0.5 cm pedunculated polyp at 70 cm, 0.25 cm flat polyp at 65 cm, 0.25 cm flat polyp at 20 cm) Complications: None Disposition: same day Indications: Augusto is a 69 year old man with a history of tubular adenoma who needs his next screening colonoscopy Prep: Miralax/Dulcolax Procedure Start Time: 08:33 Procedure End Time: 08:51 Retraction Time: 14 Findings: Sigmoid diverticulosis, 0.5 cm pedunculated polyp at 70 cm, 0.25 cm flat polyp at 65 cm, 0.25 cm flat polyp at 20 cm Procedure Description: After the induction of anesthesia, and with the patient in left lateral decubitus position, I began by performing an external anorectal exam.? Perineum and skin were normal, as was the anal verge.? There was no evidence of external hemorrhoids.? Next, I performed a digital rectal exam.? I did not appreciate any abnormal findings.? Next, I advanced a colonoscope into the rectal vault.? I performed retroflexion. This appeared normal.? Using insufflation, I then advanced the colonoscope beyond the rectal folds and into the sigmoid colon before advancing towards the cecum.? There is sigmoid diverticulosis.? The scope was noted to be in the cecum by identification of the ileocecal valve and appendiceal orifice.? I then began withdrawing the colonoscope using repeated irrigation as necessary for full evaluation of the colonic mucosa. Around 70 cm from the anal verge was a 0.5 cm pedunculated polyp. This was removed with cold snare polypectomy. Resection was complete. There was minimal bleeding. I found another 0.25 cm flat polyp at 65 cm from the anal verge. This was removed with cold forceps. There was minimal bleeding from this site. Finally, another 0.25 cm flat polyp was found at 20 cm from the anal verge. This was also removed with cold forceps. Once the scope was withdrawn to the level of the rectum, great care was taken to examine portions of the rectal folds.? Finally, the scope was withdrawn and the patient was brought to the same-day surgery recovery unit as the anesthetic wore off. ?The findings and instructions were shared with the patient prior to discharge. [place] Bowel Prep [place] Bowel Prep Right Colon: 3 Left Colon: 3 Transverse Colon: 3 Total Score: 9
[2024-07-12 07:14] VITALS: BP 125/78; PULSE 62; RESP 16; TEMP 37; O2SAT 95
[2024-07-12] MEDS: Lactated Ringers 1,000 ML 80 ML IV (07:20)
[2024-07-12 07:54] VITALS: BMI 30.4
--- NOTE | 2024-07-12 07:54 | W.ANESPRE ---
General Info Date of Service Date Performed: 07/12/24 Height: 5 ft 4 in Weight: 80.3 kg Body Mass Index (BMI): 30.4 Surgical Procedure: Operation Date: 07/12/24 08:20 Proposed Procedure Side Surgeon gabo Neville MD Meds Allergies and Home Medications Allergies Allergy/AdvReac Type Severity Reaction Status Date / Time No Known Allergies Allergy Verified 07/12/24 07:11 Home Medication ?Medication ?Instructions ?Recorded atorvastatin 40 mg tablet 40 mg PO QHS #90 tabs 05/10/24 lisinopril 20 mg tablet 20 mg PO DAILY #90 tab-caps 05/10/24 Current Visit Medications: Current Medications Generic Name Dose Route Start Last Admin Trade Name Freq PRN Reason Stop Dose Admin Ringer's Solution 1,000 mls @ 80 mls/hr 07/12/24 07:30 07/12/24 07:20 IV 08/11/24 07:29 80 mls/hr INFUSION ZOHRA Administration IV Miscellaneous Supplies 1 each 07/12/24 06:00 Iv Access IV 07/12/24 23:59 DIRECTED ZOHRA Ondansetron HCl 4 mg 07/11/24 15:18 Ondansetron 4 Mg/2 Ml Vial IVP 08/10/24 15:17 Q4H PRN PRN Nausea / Vomiting Sodium Chloride 0 ml 07/12/24 06:00 Normal Saline Flush 10 Ml Syr IV 07/12/24 23:59 PRN PRN Sodium Chloride 0 ml 07/12/24 06:00 Normal Saline 10 Ml Vial IJ 07/12/24 23:59 DIRECTED PRN Sterile Water 0 ml 07/12/24 06:00 Water,Injection,Sterile 10 Ml Vial IJ 07/12/24 23:59 DIRECTED PRN PFSH Active Problems Active Problems: Problem Status Onset Code Encounter for screening colonoscopy Acute Z12.11 Trigger finger, left index finger Acute M65.322 Family history of malignant neoplasm of prostate Acute Z80.42 Bilateral sensorineural hearing loss Chronic 10/24/23 H90.3 Tinnitus of both ears Chronic 10/24/23 H93.13 Combined forms of age-related cataract, bilateral Chronic 12/26/22 H25.813 Hypermetropia, bilateral Chronic 12/26/22 H52.03 PHAN-inhibitor cough Chronic R05.8, T46.4X5A Trigger little finger of right hand Acute M65.351 Cubital tunnel syndrome on right Acute G56.21 Sebaceous hyperplasia Acute ~08/15/22 L73.8 Lichenoid dermatitis Acute ~08/15/22 L28.0 Adenomatous colon polyp Acute 08/03/14 D12.6 Benign neoplasm of colon Acute 08/15/14 D12.6 Cervical spondylosis Acute 03/09/17 M47.812 Hyperlipidemia Acute 05/03/99 E78.5 Obesity Acute 10/26/12 E66.9 Hypertension Chronic I10 Trigger finger Acute M65.30 Family history of coronary arteriosclerosis Acute Z82.49 Insomnia Acute G47.00 Arthritis of foot, right Acute M19.071 Tinnitus Acute H93.19 Osteoarthritis of right ankle and foot Acute ~08/2021 M19.071 Left carpal tunnel syndrome Acute G56.02 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 Medical History Comments:: pt. reports low resting heart rate. Pt. reports he has a problem if his face is covered, might use arms to try to remove Surgical History Surgical History Amputation toe 10/14/21 Podiatry - Right first metatarsophalangeal joint cheilectomy History of deviated nasal septum (~1967) Repair of inguinal hernia (07/02/1957) ? Left Colonoscopy - IV Sedation (08/14/17) Colonoscopy - IV Sedation (08/15/14) Cholecystectomy (06/20/11) Lap Becca with liver bx NORMAL, Dr Ed Forte. Tobacco Smoking/Tobacco Use Status: Former Tobacco Use Passive smoking exposure: No Second hand exposure: No Alcohol Alcohol Intake: current Alcohol intake frequency: holidays/special occasions only Substance Use Substance use: Never Substance use type: does not use Details: alcohol: 06/25/24 Vital Signs and Lab Results Vital Signs Most Recent Vital Signs in EMR: Most Recent Vital Signs Temp Pulse Resp BP Pulse Ox 37.0 C 62 16 125/78 95 07/12/24 07:14 07/12/24 07:14 07/12/24 07:14 07/12/24 07:14 07/12/24 07:14 Lab Results Blood Type / Crossmatch: No Data to Display Complete Blood Count: No Data to Display Complete Metabolic Panel: No Data to Display Liver Function Panel: No Data to Display Coagulation Panel: No Data to Display Cardiac Panel: No Data to Display Arterial Blood Gas: No Data to Display Venous Blood Gas: No Data to Display Pancreas Panel: No Data to Display Thyroid Panel: No Data to Display Infectious Disease: No Data to Display Blood Cultures: No Data to Display Toxicology Panel: No Data to Display Anesthesia Assessment and Plan Anesthesia History Personal History: No History of Anesthesia Complications Family History: No Family History of Anesthesia Complications Exercise Tolerance Exercise Tolerance: Metabolic Equivalents>4 Pertinent Negatives Pertinent Negatives: No Symptoms of GERD Cardiac & Pulmonary Exam Cardiac Exam: Normal S1/S2 Heart Sounds Pulmonary Exam: Clear Bilateral Breath Sounds Implantable Cardiac Device Does patient have a Pacemaker or an ICD?: No Airway Exam Known Difficult Airway: No Mallampati Class: 1 Mouth Opening: Normal (> 3cm) Thyromental Distance: Less than 3 cm Neck Range of Motion: Full ROM Neck Circumference: Normal Teeth Condition: Normal Dentition ASA Classification ASA Score: ASA 2 Emergency Case?: No NPO Status NPO Status: NPO Clears >2 hours, Solids >8 hours Anesthesia Plan Resuscitation Status: Full Code Anesthesia Technique: General Anesthesia Airway Planned: Natural Airway Monitors Used: Standard Monitors
--- NOTE | 2024-07-12 08:40 | BOWEL_PTH ---
PATIENT: Augusto Nowak LOC: [facility] U#:[id number] AGE/SX: 69/M ROOM: RE07/12/[address]: Dioni Neville MD : 1955 BED: DIS: 07/12/2024 SPEC #: [id number] RECD: 07/12/24 13:03 STATUS: BRODY REQ #: [id number] TOBIN: 07/12/24 08:[address]: Dioni Neville DEPT: Surgical Specimen RECD BY: Jeanette Sandra ENTERED: 07/12/24 13:05 SP TYPE: Bowel OTHR DR: Ryan Oseguera DO Tissues: 1 - BIOPSY BOWEL 2 - BIOPSY BOWEL 3 - BIOPSY BOWEL Procedures: GROSS AND MICRO LEVEL 4 Comments: [id number]
[2024-07-12 08:58] VITALS: BP 137/75; PULSE 56; RESP 20; TEMP 36.4; O2SAT 94
[2024-07-12 09:21] VITALS: BP 121/77; PULSE 48; RESP 20; TEMP 36.3; O2SAT 96
--- NOTE | 2024-07-12 09:24 | W.ANESPOSTOP ---
Postoperative Evaluation Date, Time and Location Date Performed: 07/12/24 Time Performed: 09:08 Patient Location: Day Surgery Unit Vital Signs Most Recent Imported Vital Signs: Most Recent Vital Signs Temp Pulse Resp BP Pulse Ox 36.3 C L 48 L 20 121/77 96 07/12/24 09:21 07/12/24 09:21 07/12/24 09:21 07/12/24 09:21 07/12/24 09:21 Pain Score Most Recent Pain Score: Most Recent Pain Score Pain Level 0 07/12/24 07:14 Assessment Mental Status: Awake (Alert & Oriented to Patient Baseline) Airway and Respiratory Function: Patent airway with normal (patient baseline) respiratory exam Cardiovascular Function: Hemodynamically Stable Hydration Status: Adequately Hydrated Nausea & Vomiting: No Nausea or Vomiting Pain: Pt. Denies Any Pain Peripheral Nerve Block: Patient did not receive a nerve block
== END 2024-07-12 09:32 | disposition home or self-care (01) ==
LOC: SUR 06:45
PROVIDERS: PCP Family Medicine; Visit Provider Surgery
PROC: 0DJD8ZZ Inspection of Lower Intestinal Tract, Via Natural or Artificial Opening Endoscopic (ICD-10-PCS; CPT 45378; principal; 2024-07-12 08:15)
DX: Z12.11 Encounter for screening for malignant neoplasm of colon (principal); D12.4 Benign neoplasm of descending colon; I10 Essential (primary) hypertension; K57.30 Diverticulosis of large intestine without perforation or abscess without bleeding
CPT/HCPCS: 45385; 45380; 88305; J2704

== ENCOUNTER → 2024-10-09 08:01 | Outpatient (BNVA) | payer MEDICARE, BC, SELFPAY | PROVIDERS: Referring Provider Family Medicine; Visit Provider Nurse Practitioner Adult Health | DX: G56.02 Carpal tunnel syndrome, left upper limb (principal); G56.22 Lesion of ulnar nerve, left upper limb | CPT/HCPCS: 99215 ==